=== PATIENT | female | born 1945 | race Caucasian/White ===

== ENCOUNTER 2017-12-20 08:15 | Inpatient (IN) | payer MEDICARE, OTHER ==
--- NOTE | 2017-12-15 21:19 | HP ---
HISTORY AND PHYSICAL: DATE OF ADMISSION/SURGERY: 12/20/17 DATE OF OFFICE VISIT: 12/14/17 SURGEON: Yoli Pendleton MD * (DICTATED BY JESUS CARR) PROCEDURE: Left total knee arthroplasty. CHIEF COMPLAINT: Left knee pain. HISTORY OF PRESENT ILLNESS: Ms. Baird is a 72-year-old female with continued complaints of left knee pain. She has failed conservative management and elected to proceed with a left total knee arthroplasty, which is scheduled for 12/20/17. PAST MEDICAL HISTORY: History of non-Hodgkin's lymphoma. PAST SURGICAL HISTORY: Bladder sling, exploratory laparotomy, and tonsillectomy. CURRENT MEDICATIONS: Aleve. ALLERGIES: None. FAMILY HISTORY: Diabetes, heart disease, genetic spastic paraparesis. SOCIAL HISTORY: This 72-year-old lives with her . She does not smoke or use drugs. Denies use of alcohol. REVIEW OF SYSTEMS: A complete 14-point review of systems was reviewed with the patient. It was positive for some occasional lightheadedness. She denies history of DVT, PE, hepatitis, HIV, anesthesia problems, or shortness of breath. PHYSICAL EXAMINATION GENERAL: She is well developed, well nourished, in no acute distress. VITAL SIGNS: She stands 5 feet 6 inches tall, weighs 251 pounds. Her blood pressure 138/76 and heart rate 78. HEENT: Normocephalic, atraumatic. NECK: Supple. No palpable lymph nodes. PULMONARY: Lungs are clear to auscultation bilaterally. CARDIO: Regular rate and rhythm. Strong S1, S2. ABDOMEN: Soft, nontender, nondistended. NEUROLOGICAL: She is alert and oriented x3. MUSCULOSKELETAL: Left lower extremity, the skin is intact. There are no open wounds or abrasions. She has moderate joint effusion, some tenderness over the medial and lateral joint line. Range of motion 10 to 120 degrees of flexion with patellofemoral crepitus. She has 2+ dorsalis pedis pulse. Intact sensation. Her lower extremity muscle group strengths are intact at 5/5. ASSESSMENT AND PLAN: Ms. Baird is a 72-year-old female with end-stage osteoarthritis of the left knee. She has failed conservative treatment and elected to proceed with a left total knee arthroplasty, which is scheduled for 12/20/[address] Pendleton discussed the risks and benefits of the surgery at today's visit and all of her questions were answered. She will follow with Dr. Pendleton 2 weeks after the surgery. JESUS CARR [id number]/[facility] #: [id number] [facility]ENTERDavon
[~2017-12-20 08:15] MED LIST: Buffered Lidocaine 0.9% SYRIN* 5 ML/SYR SYRINGE INTRADERM ONE; Bupivacaine 0.5% SDV PF* 30ML VIAL SCH; Tranexamic Acid 1,000 MG in NS 0.9% 50 ML* (outpatient use) IV SCH
[2017-12-20] MEDS ORDERED: ceFAZolin 2 GM in NS PREMIX(*) 2 GM/100 ML BAG IVPB ONE (08:50)
[2017-12-20] MEDS ORDERED: Lidocaine 2% PF * 5 ML VIAL ONE (09:33)
[2017-12-20] MEDS ORDERED: Propofol* 500 MG/50 ML BTL ONE (09:33)
[2017-12-20] MEDS ORDERED: KETAMINE HCL* 50 MG/ML 10 ML VIAL ONE (09:33)
[2017-12-20] MEDS ORDERED: fentaNYL* 50 MCG/ML 2 ML VIAL (100 MCG VIAL) ONE (09:34)
[2017-12-20] MEDS ORDERED: Midazolam* 1 MG/ML 2 ML VIAL (2 MG) ONE ×4 (09:34→13:24)
[2017-12-20] MEDS ORDERED: ROPIVACAINE 5 MG/ML 30 ML BTL (0.5%) ONE (09:34)
[2017-12-20] MEDS ORDERED: Propofol* 10 MG/ML 20 ML BTL IV PUSH ONE (09:42)
[2017-12-20] MEDS ORDERED: Dexamethasone IV* 4 MG/ML 1 ML (4 MG) ONE (11:51)
[2017-12-20] MEDS ORDERED: Scopolamine 1.5 mg* PATCH ONE (11:57)
[2017-12-20] MEDS ORDERED: Acetaminophen IV 1GM/100ML * 1,000 MG/100 ML VIAL IVPB ONE (12:18)
[2017-12-20] MEDS ORDERED: HYDROmorphone INJ1* 1 MG/ML SYRINGE IV PRN (12:18)
[2017-12-20] MEDS ORDERED: Ondansetron INJ* 2 MG/ML VIAL IV PRN (12:18)
[2017-12-20] MEDS ORDERED: Ketorolac INJ* 30 MG/ML 1 ML VIAL IV PRN (12:18)
[2017-12-20] MEDS ORDERED: Naloxone* 0.4 MG/ML 1 ML VIAL IV PRN (12:18)
[2017-12-20] MEDS ORDERED: Bupivacaine 0.25% SDV PF* 10 ML VIAL INJ ONE (13:01)
[2017-12-20] MEDS ORDERED: Bisacodyl SUPP* 10 MG SUPP PR PRN (13:40)
[2017-12-20] MEDS ORDERED: Morphine INJ* 2 MG/ML 1 ML SYRINGE (TWO MG - NEW SYRINGE VERSION) IV PRN (13:40)
[2017-12-20] MEDS ORDERED: Polyethylene Glycol 3350* 17 GM PACKET PO PRN (13:40)
[2017-12-20] MEDS ORDERED: Ondansetron TAB* 4 MG PO PRN (13:40)
[2017-12-20] MEDS ORDERED: diPHENhydraMINE IV* 50 MG/ML 1 ml VIAL (BENADRYL) IV PRN (13:40)
[2017-12-20] MEDS ORDERED: Magnesium Hydroxide LIQ* 30 ML UDC PO PRN (13:40)
[2017-12-20] MEDS ORDERED: Ketorolac INJ* 30 MG/ML 1 ML VIAL ONE (13:44)
[2017-12-20] MEDS ORDERED: Acetaminophen IV 1GM/100ML * 100 ML ONE (14:31)
--- NOTE | 2017-12-20 14:39 | RAD ---
HISTORY: s/p left TKA COMPARISONS: October 07, 2017 VIEWS: 3 , Frontal and lateral views of the left knee FINDINGS: BONE DENSITY: Normal. BONES: The patient is status post left knee arthroplasty. There is no hardware failure or osteolysis. JOINTS: The patient is status post left knee arthroplasty. ALIGNMENT: There is no dislocation. SOFT TISSUES: There is postsurgical change to the soft tissue. OTHER FINDINGS: None. IMPRESSION: STATUS POST LEFT KNEE ARTHROPLASTY
--- NOTE | 2017-12-20 16:16 | PN ---
Progress Note - Progress Note Date of Service: 12/20/17 Note: resting comfortably in bed, minimal pain; 2+ DP pulse, intact sensation, able to dorsi flex/plantar flex; dressing c/d/i
[2017-12-20] MEDS: oxyCODONE/Acetamin 5/325 MG* TAB PO PRN ×2 (16:48→21:59)
[2017-12-20] MEDS ORDERED: Warfarin TAB(*) 6 MG PO ONE (17:00)
[2017-12-20] MEDS: ceFAZolin 1 GM in Dextrose (*) 1 GM/50 ML BAG IVPB SCH (19:48)
[2017-12-20] MEDS: Magnesium Hydroxide LIQ* 30 ML UDC PO SCH (21:06)
[2017-12-20] MEDS: Docusate CAP* 100 MG PO SCH (21:06)
[2017-12-20] MEDS: Ondansetron INJ* 2 MG/ML VIAL IV PRN (22:18)
[2017-12-20] MEDS: Acetaminophen TAB* 325 MG PO SCH (22:31)
[2017-12-21] MEDS: oxyCODONE/Acetamin 5/325 MG* TAB PO PRN ×3 (02:00→10:23)
[2017-12-21] MEDS: ceFAZolin 1 GM in Dextrose (*) 1 GM/50 ML BAG IVPB SCH ×2 (03:26→11:32)
[2017-12-21] MEDS: oxyCODONE TAB* 5 MG TAB PO PRN ×2 (04:31→17:01)
[2017-12-21 06:20] LABS: Hematocrit 37 % (35-47); Hemoglobin 12.5 g/dl (12.0-16.0); Mean Platelet Volume 7.7 um3 (7.4-10.4); Platelet Count 318 10^3/ul (150-450)
[2017-12-21 06:21] LABS: INR 1.03 (0.77-1.02)
[2017-12-21] MEDS: Acetaminophen TAB* 325 MG PO SCH ×4 (07:16→21:32)
[2017-12-21] MEDS: Docusate CAP* 100 MG PO SCH ×2 (08:18→21:32)
[2017-12-21] MEDS: Magnesium Hydroxide LIQ* 30 ML UDC PO SCH ×2 (08:18→21:36)
[2017-12-21] MEDS ORDERED: PROCHLORPERAZINE INJ 5 MG/ML 2 ML VIAL IV PRN (09:38)
--- NOTE | 2017-12-21 09:41 | PN ---
Progress Note - Progress Note Date of Service: 12/21/17 SOAP: Subjective: []Patient was seen and examined at bedside. She confirms lightheadedness with movement and nausea. She has not vomit since last night. She does get this feeling of lightheadedness at home that typically resolves with water and rest, though these interventions have not resolved her symptom at this time. Currently , she feels comfortable laying in bed. Vital signs stable and afebrile. Denies chest pain, shortness of breath, dizziness or vomiting. Objective: []General: Well appearing, NAD LE: Dressing CDI without erythema surrounding. Thigh is soft. Sensation intact and capillary refill less than two seconds distally. DP2+. DF/PF intact. BL Calves supple and nontender without erythema, edema or palpable cords. Assessment: []POD 1 sp left total knee arthroplasty, Dr Pendleton 12/20/17 Plan: []WBAT PT/OT lovenox bridge to coumadin, coumadin 8 mg today Anticipate DC home tomorrow Mild hyponatremia, will recheck sodium level in the morning O2 sat as low as 93, encourage incentive spirometry Remove scopolamine patch in event it may be contributing to lightheadedness. Has PRN zofran, added PRN compazine Vital Signs Temp 97.4 F 12/21/17 07:17 Pulse 92 12/21/17 07:17 Resp 18 12/21/17 08:46 BP 138/69 12/21/17 07:17 Pulse Ox 95 12/21/17 07:17 Intake & Output 12/20/17 12/21/17 12/21/17 18:59 06:59 18:59 Intake Total 1250 2690 230 Output Total 400 274108 Balance 850 -311503 230 Weight 252 lb Intake: IV Fluids 1250 1090 ABX - CEFAZOLIN 110 LR 1250 980 Oral 1600 230 Output: Urine 2100 [place] 400 [id number] Laboratory Last Values Hgb 12.5 g/dl (12.0-16.0) 12/21/17 06:00 Hct 37 % (35-47) 12/21/17 06:00 Plt Count 318 10^3/ul (150-450) 12/21/17 06:00 MPV 7.7 um3 (7.4-10.4) 12/21/17 06:00 INR (Anticoag Therapy) 1.03 (0.77-1.02) H 12/21/17 06:00 Sodium 134 mmol/L (135-145) L 12/21/17 06:00 Potassium 4.4 mmol/L (3.5-5.0) 12/21/17 06:00 Chloride 100 mmol/L (101-111) L 12/21/17 06:00 Carbon Dioxide 28 mmol/L (22-32) 12/21/17 06:00 Anion Gap 6 mmol/L (2-11) 12/21/17 06:00 BUN 17 mg/dL (6-24) 12/21/17 06:00 Creatinine 0.70 mg/dL (0.51-0.95) 12/21/17 06:00 Est GFR ( Amer) 99.2 (>60) 12/21/17 06:00 Est GFR (Non-Af Amer) 82.0 (>60) 12/21/17 06:00 BUN/Creatinine Ratio 24.3 (8-20) H 12/21/17 06:00 Glucose 140 mg/dL (70-100) H 12/21/17 06:00 POC Glucose (mg/dL) 124 mg/dL (70-100) H 12/20/17 08:48 Calcium 8.8 mg/dL (8.6-10.3) 12/21/17 06:00
[2017-12-21] MEDS: Enoxaparin(*) 30 MG/0.3 ML SYR SUBCUT SCH (13:02)
[2017-12-21] MEDS ORDERED: NS 0.9% 500 ML* 500 ML IV ONE (14:49)
[2017-12-21] MEDS ORDERED: Warfarin TAB(*) 4 MG PO ONE (17:00)
[2017-12-22] MEDS: oxyCODONE/Acetamin 5/325 MG* TAB PO PRN ×2 (00:58→12:08)
[2017-12-22 05:46] LABS: Hematocrit 35 % (35-47); Hemoglobin 11.6 g/dl (12.0-16.0); Mean Platelet Volume 7.5 um3 (7.4-10.4); Platelet Count 291 10^3/ul (150-450)
[2017-12-22 05:54] LABS: INR 1.35 (0.77-1.02)
[2017-12-22] MEDS: Acetaminophen TAB* 325 MG PO SCH (06:05)
[2017-12-22] MEDS: Ondansetron INJ* 2 MG/ML VIAL IV PRN (08:00)
[2017-12-22] MEDS: Magnesium Hydroxide LIQ* 30 ML UDC PO SCH (09:09)
[2017-12-22] MEDS: Docusate CAP* 100 MG PO SCH (09:09)
--- NOTE | 2017-12-22 09:58 | OP ---
DATE OF OPERATION: 12/20/17 - ROOM #347 DATE OF : 43 SURGEON: Yoli Pendleton MD SUCTION PLATE ROLLER HAND: JESUS Baker. Ms. Fallon did help throughout the procedure with preparation of the leg, wound retraction, manipulation of the knee and wound closure. ANESTHESIOLOGIST: Dr. Washington. ANESTHESIA: Spinal. PRE-OP DIAGNOSIS: Severe end-stage degenerative osteoarthritis of the left knee joint. POST-OP DIAGNOSIS: Severe end-stage degenerative osteoarthritis of the left knee joint. OPERATIVE PROCEDURE: Left total knee arthroplasty. COMPLICATIONS: None. ESTIMATED BLOOD LOSS: 200 cc. TOURNIQUET TIME: 43 minutes. SPECIMENS: Bone and cartilage from the left knee joint sent to pathology. HARDWARE USED: This is Koenig [employer] Nephew cemented total knee arthroplasty hardware. For the cement, two packages of Simplex bone cement. For the femur, a left size 5 narrow posterior stabilized Legion Oxinium femoral component. For the tibia, a size 3 left tibial baseplate Shiloh II. For the insert, a 9- mm posterior stabilized articular insert size 3/4 and for the patella, 32-mm 3- peg all poly patella. BRIEF HISTORY/INDICATIONS: Ms. Baird is a 72-year-old female with years of increasingly severe left knee pain. She failed conservative treatment with antiinflammatories, pain medication, intraarticular injections, and physical therapy. Radiographs showed [id number] arthritis. Due to continued pain and decreased quality of life, the patient elected to undergo left total knee arthroplasty. Informed consent was obtained from the patient. She understood the risks of surgery included but were not limited to, bleeding, infection, damage to nearby structures, continued pain, need for further surgery, hardware failure or loosening, knee stiffness, loss of motion, stroke, heart attack, blood clot, and . She wished to proceed. INTRAOPERATIVE FINDINGS: Intraoperatively, the patient was noted to have severe end-stage arthritis of all three compartments with extensive osteophyte formation. DESCRIPTION OF PROCEDURE: Ms. Baird was identified in the preanesthesia unit. Her left lower extremity was marked as the correct operative side. Informed consent was signed and placed in the chart. The patient was taken to the operating room and placed under spinal anesthesia. A Cleveland catheter was placed. Tourniquet was placed on the left thigh. Left lower extremity was prepped and draped in the usual sterile fashion. Preop time-out was made to correctly identify the patient's side and site. Appropriate perioperative antibiotics were given within one hour of incision. Tourniquet was inflated and total tourniquet time for this procedure was 43 minutes. A midline incision was made with a #10 blade and carried down to the extensor mechanism. New #10 blade was made to make a standard medial parapatellar arthrotomy. Patella was subluxed laterally. Electrocautery was used to subperiosteally elevate soft tissue off the superomedial tibia to the mid sagittal plane. The knee was flexed up. The anterior horn of the lateral meniscus and ACL were sharply released. A drill was used to enter the distal femur. Intramedullary distal femoral cutting guide was pinned on the distal femur. Oscillating saw was used to make the distal femoral cut. Next, the external rotation guide was pinned on the distal femur. Distal femur was sized to a size 5. Size 5 multi-cutting jig was pinned on the distal femur. Oscillating saw was used to make the appropriate chamfer cuts. The PCL was completely released. The tibia was subluxed anteriorly. Extramedullary tibial cutting guide was pinned on the proximal tibia. Oscillating saw was used to make the proximal tibial cut perpendicular to the mechanical axis of the tibia. The knee was brought out into full extension and the bone cut was removed. Medial and lateral ligaments were noted to be well balanced. Any remaining medial tibial plateau osteophytes were carefully removed with a rongeur. Flexion and extension gaps is well balanced. The spacer blocks fit with the knee in full extension. The knee was flexed up and a lamina home health occupational therapist was placed both medially and laterally. Any remaining meniscus was carefully removed using electrocautery. Curved osteotome was used to remove any posterior osteophytes. A size 5 left narrow femoral trial was impacted on to the distal femur and had excellent fit. The box for the posterior stabilized implant was prepared using a reamer and box cut osteotome. Size 3 tibial tray trial with a 9 mm insert trial was placed and the knee taken through a range of motion. The knee was stable in all positions. The knee had full extension to 130 degrees of flexion with satisfactory patellofemoral tracking. The patella was everted. A 9 mm of patellar bone and cartilage were carefully removed using an oscillating saw. Patella was sized to a size 32. Three peg holes were drilled to a size 32 guide. A 32 trial patella was placed and the knee was taken through a range of motion. The knee had satisfactory patellofemoral tracking. All trials were carefully removed. Tibia was subluxed anteriorly and sized to a size 3. Proximal tibia was prepared using a size 3 keel punch. All bony cut surfaces were copiously irrigated with sterile saline and dried. Final implants were cemented into place starting with the tibia, followed by the femur, and lastly the patella. A 9 mm insert trial was placed and the knee was brought out into full extension. Tourniquet was turned down. Electrocautery was used to obtain meticulous hemostasis. The knee was copiously irrigated with sterile saline. Once the cement had fully cured, the insert trial was removed. Any excess cement was removed from around the capsule and hardware. Final insert chosen was a 9 mm posterior stabilized articular insert size 3/4. This was locked into position on the tibial tray. The stability of the insert was checked and rechecked and noted to be stable. The knee was once again copiously irrigated with sterile saline. The extensor mechanism was closed using interrupted #1 Vicryl. The rest of the incision was closed in a layered fashion using 0 and 2-0 Vicryl. Skin was closed using running 3-0 nylon suture. Sterile Xeroform, 4x4's, and Webril were used to cover the incision. Chavez wrap and cold pack were placed over this. The patient' s anesthesia was reversed without difficulty. She was taken to the PACU in stable condition. Intended weightbearing will be weightbearing as tolerated. Intended DVT prophylaxis will be Coumadin with a Lovenox bridge. [id number]/[facility] #: [id number] [facility]
--- NOTE | 2017-12-22 10:35 | PN ---
Progress Note - Progress Note Date of Service: 12/22/17 SOAP: Subjective: []Patient seen and examined OOB in chair. She feels well and desires DC home. She would like an antiemetic for home. Denies CP, SOB, dizziness or vomiting. She is not currently nauseous. Objective: []]General: Well appearing, NAD LE: Dressing changed by Dr Pendleton this morning, dressing remains CDI without erythema surrounding. Thigh is soft. Sensation intact and capillary refill less than two seconds distally. DP2+. DF/PF intact. BL Calves supple and nontender without erythema, edema or palpable cords. Assessment: []POD 2 sp left total knee arthroplasty, Dr Pendleton 12/20/17 Plan: []WBAT PT/OT lovenox bridge to coumadin, coumadin 6 mg today Anticipate DC home today Vital Signs Temp 97.6 F 12/22/17 08:26 Pulse 83 12/22/17 08:26 Resp 16 12/22/17 08:26 BP 150/74 12/22/17 08:26 Pulse Ox 93 12/22/17 08:26 Intake & Output 12/21/17 12/22/17 12/22/17 18:59 06:59 18:59 Intake Total 991 1120 240 Output Total 305 3200 400 Balance 686 -2080 -160 Intake: IV Fluids 281 500 LR 281 NS (0.9%) 500 Oral 710 620 240 Output: Urine 305 3200 400 Other: Estimated Void Small Small # Bowel Movements 0 # Voids 1 1 Laboratory Last Values Hgb 11.6 g/dl (12.0-16.0) L 12/22/17 05:34 Hct 35 % (35-47) 12/22/17 05:34 Plt Count 291 10^3/ul (150-450) 12/22/17 05:34 MPV 7.5 um3 (7.4-10.4) 12/22/17 05:34 INR (Anticoag Therapy) 1.35 (0.77-1.02) H 12/22/17 05:35 Sodium 134 mmol/L (135-145) L 12/22/17 05:34 Potassium 4.4 mmol/L (3.5-5.0) 12/21/17 06:00 Chloride 100 mmol/L (101-111) L 12/21/17 06:00 Carbon Dioxide 28 mmol/L (22-32) 12/21/17 06:00 Anion Gap 6 mmol/L (2-11) 12/21/17 06:00 BUN 17 mg/dL (6-24) 12/21/17 06:00 Creatinine 0.70 mg/dL (0.51-0.95) 12/21/17 06:00 Est GFR ( Amer) 99.2 (>60) 12/21/17 06:00 Est GFR (Non-Af Amer) 82.0 (>60) 12/21/17 06:00 BUN/Creatinine Ratio 24.3 (8-20) H 12/21/17 06:00 Glucose 140 mg/dL (70-100) H 12/21/17 06:00 POC Glucose (mg/dL) 124 mg/dL (70-100) H 12/20/17 08:48 Calcium 8.8 mg/dL (8.6-10.3) 12/21/17 06:00
[2017-12-22] MEDS: Enoxaparin(*) 30 MG/0.3 ML SYR SUBCUT SCH (12:11)
[2017-12-22 12:14] VITALS: BP 145/80
--- NOTE | 2017-12-23 02:07 | DS ---
DISCHARGE SUMMARY: DATE OF ADMISSION: 12/20/17. DATE OF DISCHARGE: 12/22/17 PROVIDER: Dr. Yoli Pendleton.* (DICTATED BY JESUS CHEEK) CRANE OPERATOR: JESUS Baker. PREOPERATIVE DIAGNOSIS: Severe end-stage degenerative osteoarthritis of the left knee joint. OPERATIVE PROCEDURE: Left total knee arthroplasty. HISTORY: Ms. Baird is a 72-year-old female with years of increasing severe left knee pain. She has failed conservative management and elected to undergo a left total knee arthroplasty. HOSPITAL COURSE: The patient was admitted to [facility] on . She underwent a left total knee arthroplasty without complication. Postop day 1, she was well-appearing, in no acute distress. Dressing clean, dry and intact. Dorsiflexion and plantarflexion intact. DP pulse 2+. Postop day 2, dressing changed by Dr. Pendleton this morning. Incision remains clean, dry and intact. Vital Signs: Temperature 97.6, pulse 83, respiratory rate 16, blood pressure 150/74, pulse ox 93. Hemoglobin 11.6, hematocrit 35, INR 1.35. DISCHARGE MEDICATIONS: 1. Naproxen is discontinued at home. 2. Acetaminophen 975 mg p.o. q.8 hours p.r.n., max daily dose of 4000 mg by mouth. 3. Docusate 100 mg p.o. b.i.d. p.r.n. 4. Percocet 5/325, 1 to 2 tabs every 4 to 6 hours as needed for pain, max daily dose of 10. 5. Warfarin 2 mg 1 to 3 tabs daily, dose depends on INR. 8. Zofran 4 mg p.o. q.6 hours p.r.n. DISCHARGE PLAN: The patient will be weightbearing as tolerated. She may shower postop day 3. She will be on Coumadin for DVT prophylaxis. Last INR was 1.35. Coumadin dosing starting 12/22/17, 6 mg; 12/23/17, 2 mg; 12/24/17, 4 mg; 12/25/17, 4 mg. Recheck INR on 12/26/17. Pain control: Percocet 5/325, 1 to 2 tabs every 4 to 6 hours as needed for pain, max daily dose 10 tabs per day. Followup with Dr. Pendleton in 10 to 14 days. PERCY POLANCO, JESUS [id number]/[facility] #: [id number] [facility] DIVISIONDavon
== END 2017-12-22 12:50 | disposition home health service (06) | DRG 470 ==
LOC: AA 08:15 → SSU 15:19
PROVIDERS: ADMIT Orthopaedic Surgery Adult Reconstructive Orthopaedic Surgery; ATTEND Orthopaedic Surgery Adult Reconstructive Orthopaedic Surgery
PROC: 0SRD069 Replacement of Left Knee Joint with Oxidized Zirconium on Polyethylene Synthetic Substitute, Cemented, Open Approach (ICD-10-PCS; principal; 2017-12-20 11:00)
DX: M17.12 Unilateral primary osteoarthritis, left knee (principal); R42 Dizziness and giddiness; M25.462 Effusion, left knee; E78.00 Pure hypercholesterolemia, unspecified; I10 Essential (primary) hypertension; E11.9 Type 2 diabetes mellitus without complications; M25.762 Osteophyte, left knee; M48.00 Spinal stenosis, site unspecified; Z79.01 Long term (current) use of anticoagulants; Z85.72 Personal history of non-Hodgkin lymphomas; Z83.3 Family history of diabetes mellitus; Z92.3 Personal history of irradiation; Z82.49 Family history of ischemic heart disease and other diseases of the circulatory system; R11.2 Nausea with vomiting, unspecified
CPT/HCPCS: 36415; 80048; 84300; 85014; 85018; 85049; 85610; A9270-GY; C1776; G8978-GP-CI; G8978-GP-CJ; G8978-GP-CK; G8979-GP-CI; G8980-GP-CI; G8987-GO-CJ; G8988-GO-CI; J0690; J0780; J1100; J1650; J1885; J2250; J2270; J2405; J2704; J2795; J3010; J3490

== ENCOUNTER 2019-01-10 07:10 | Day surgery (SDC) | payer MEDICARE, OTHER ==
[~2019-01-10 07:10] MED LIST changes: +Acetaminophen TAB* 325 MG PO PRN; -Buffered Lidocaine 0.9% SYRIN* 5 ML/SYR SYRINGE INTRADERM ONE; +Buffered Lidocaine 1% SYRIN* 1 ML/SYRINGE INTRADERM ONE; -Bupivacaine 0.5% SDV PF* 30ML VIAL SCH; -Tranexamic Acid 1,000 MG in NS 0.9% 50 ML* (outpatient use) IV SCH
[2019-01-10] MEDS ORDERED: Proparacaine 0.5% OPHTH.SOL* 15 ML BTL ONE (08:11)
[2019-01-10] MEDS ORDERED: Lidocaine 1% MPF ** 5 ML VIAL ONE (08:11)
[2019-01-10] MEDS ORDERED: Lidocaine 2% w/ EPI 1:200,000* 20 ML SDV VIAL ONE (08:11)
[2019-01-10] MEDS ORDERED: Phenylephrine OPHTH SOL 2.5%* 2 ML ONE (08:11)
[2019-01-10] MEDS ORDERED: Neomycin/Polymy/Dex OPTH.SUSP* MAXITROL 0.1% 5 ML ONE (08:11)
[2019-01-10] MEDS ORDERED: Ketorolac 0.5% OPHTH (NF) 0.5 % 5 ML BTL ONE (08:11)
[2019-01-10] MEDS ORDERED: acetaZOLAMIDE TAB* 250 MG ONE (08:11)
[2019-01-10] MEDS ORDERED: Cyclopentolate 1% OPTH.SOL* 2 ML BTL ONE (08:11)
[2019-01-10] MEDS ORDERED: Povidone Iodine 5% OPTH* 30 ML BTL ONE (08:11)
[2019-01-10] MEDS ORDERED: Midazolam* 1 MG/ML 2 ML VIAL (2 MG) ONE (08:24)
[2019-01-10 10:29] VITALS: BP 143/68
--- NOTE | 2019-01-10 12:41 | OP ---
DATE OF OPERATION: 01/10/19 [facility] DATE OF : 43 SURGEON: Ron Hairston MD PREOPERATIVE DIAGNOSIS: Cataract, right eye. POSTOPERATIVE DIAGNOSIS: Cataract, right eye. OPERATIVE PROCEDURE: Extracapsular cataract extraction with intraocular lens implant, right eye. DESCRIPTION OF PROCEDURE: The patient was brought to the operating room after being given 1/2% Alcaine with epinephrine drops in the preoperative area. The eye was prepped and draped in the usual sterile fashion. Sterile drape and eyelid speculum were placed. Again, topical 1/2% Alcaine with epinephrine was given. A paracentesis incision was made at the 9 o'clock position with the No.75 blade. Clear cornea incision 2.2 x 2.2-mm was created at the 12 o'clock position starting at the anterior limbus using the 2.2-mm keratome. The anterior chamber was irrigated with 0.4 mL of 1% non-preservative intracameral lidocaine and filled with DisCoVisc. A capsulorrhexis was completed using the cystotome and the Utrata forceps. Hydrodissection was performed with balanced salt solution. The lens nucleus was removed with the Phacoemulsification handpiece without incident. Cortex was removed with the irrigation-aspiration handpiece. The capsular bag was re-inflated using DisCoVisc and an [id number] 12 implant was inserted with the shooter and oriented to the 4-degree meridian. Horizontal reference gomes were made with the patient in the preoperative area. All measurements confirmed with ORA. The irrigation- aspiration handpiece was used to remove all residual DisCoVisc. The irrigation-aspiration handpiece was used to remove all residual DisCoVisc. The eye was refilled with balanced salt solution and the wound checked and found to be watertight. Topical Maxitrol drops were given. [id number]/[facility] #: [id number] [facility]
== END 2019-01-10 10:17 | disposition home or self-care (01) ==
LOC: OREAST 07:10
PROVIDERS: ATTEND Specialist
DX: H25.811 Combined forms of age-related cataract, right eye (principal); H34.8312 Tributary (branch) retinal vein occlusion, right eye, stable; R73.01 Impaired fasting glucose; E78.5 Hyperlipidemia, unspecified; I10 Essential (primary) hypertension; E66.9 Obesity, unspecified; H91.93 Unspecified hearing loss, bilateral; Z85.72 Personal history of non-Hodgkin lymphomas
CPT/HCPCS: A9270-GY; J2250; V2787

== ENCOUNTER 2019-01-17 06:18 | Day surgery (SDC) | payer MEDICARE, OTHER ==
[~2019-01-17 06:18] MED LIST changes: -Acetaminophen TAB* 325 MG PO PRN
[2019-01-17] MEDS ORDERED: Midazolam* 1 MG/ML 2 ML VIAL (2 MG) ONE ×2 (07:42→08:10)
[2019-01-17 08:34] VITALS: BP 139/76
[2019-01-17] MEDS ORDERED: Neomycin/Polymy/Dex OPTH.SUSP* MAXITROL 0.1% 5 ML ONE (10:20)
[2019-01-17] MEDS ORDERED: Cyclopentolate 1% OPTH.SOL* 2 ML BTL ONE (10:20)
[2019-01-17] MEDS ORDERED: Povidone Iodine 5% OPTH* 30 ML BTL ONE (10:20)
[2019-01-17] MEDS ORDERED: Lidocaine 2% w/ EPI 1:200,000* 20 ML SDV VIAL ONE (10:20)
[2019-01-17] MEDS ORDERED: Phenylephrine OPHTH SOL 2.5%* 2 ML ONE (10:20)
[2019-01-17] MEDS ORDERED: acetaZOLAMIDE TAB* 250 MG ONE (10:20)
[2019-01-17] MEDS ORDERED: Lidocaine 1% MPF ** 5 ML VIAL ONE (10:20)
[2019-01-17] MEDS ORDERED: Proparacaine 0.5% OPHTH.SOL* 15 ML BTL ONE (10:20)
[2019-01-17] MEDS ORDERED: Ketorolac 0.5% OPHTH (NF) 0.5 % 5 ML BTL ONE (10:20)
--- NOTE | 2019-01-17 10:22 | OP ---
DATE OF OPERATION: 01/17/2019 - [facility] DATE OF : 1945. SURGEON: Ron Hairston M.D. PREOPERATIVE DIAGNOSIS: Cataract left eye. POSTOPERATIVE DIAGNOSIS: Cataract left eye. OPERATIVE PROCEDURE: Extracapsular cataract extraction with intraocular lens implant left eye. DESCRIPTION OF PROCEDURE: The patient was brought to the operating room after being given 1/2% Alcaine with epinephrine drops in the preoperative area. The eye was prepped and draped in the usual sterile fashion. Sterile drape and eyelid speculum were placed. Again, topical 1/2% Alcaine with epinephrine was given. A paracentesis incision was made at the 3 o'clock position with the No.75 blade. Clear cornea incision 2.2 x 2.2-mm was created at the 6 o'clock position starting at the anterior limbus using the 2.2-mm keratome. The anterior chamber was irrigated with 0.4 mL of 1% non-preservative intracameral lidocaine and filled with DisCoVisc. A capsulorrhexis was completed using the cystotome and the Utrata forceps. Hydrodissection was performed with balanced salt solution. The lens nucleus was removed with the Phacoemulsification handpiece without incident. Cortex was removed with the irrigation-aspiration handpiece. The capsular bag was re-inflated using DisCoVisc and an [id number] 12.5 implant was inserted with the shooter, oriented to the 6 degree meridian. Horizontal reference gomes were made with the patient in the preoperative area in a seated position. All measurements were confirmed with ORA. The irrigation -aspiration handpiece was used to remove all residual DisCoVisc. The eye was refilled with balanced salt solution and the wound checked and found to be watertight. Topical Maxitrol drops were given. [id number]/[facility] #: [id number] [facility]
[2019-01-17] MEDS ORDERED: BSS OPTH.SOL* BTL ONE (15:17)
== END 2019-01-17 08:46 | disposition home or self-care (01) ==
LOC: OREAST 06:18
PROVIDERS: ATTEND Specialist
DX: H25.812 Combined forms of age-related cataract, left eye (principal); H34.8312 Tributary (branch) retinal vein occlusion, right eye, stable; R73.01 Impaired fasting glucose; E78.5 Hyperlipidemia, unspecified; I10 Essential (primary) hypertension; E66.9 Obesity, unspecified; H91.93 Unspecified hearing loss, bilateral; E78.00 Pure hypercholesterolemia, unspecified
CPT/HCPCS: A9270-GY; J2250; V2787